=== PATIENT | female | born 1960 | race Caucasian/White ===

== ENCOUNTER 2021-01-18 18:12 | Emergency (ER) | payer OTHER ==
[~2021-01-18] VITALS: Ht 162.6 cm; Wt 91.0 kg
--- NOTE | 2021-01-18 18:17 | PHYS DOC ---
Past History Past Medical History: Anemia, GERD, High Cholesterol, Other General Adult HPI: HPI: "... 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 Pt. normally follows with Dr. Henson and GI Dr. Mccloud. Patient recently completed an EGD on Wednesday this past week January 14. No specific findings as reported out yet with biopsies. Patient does have a history of GERD. Has had problems with intermittent episodes of nausea and vomiting . Patient's had stomach discomfort gas after eating greasy foods such as Turkmen. There is a family history of gallbladder disease with mother. Patient localizes her pain to epigastric and right upper quadrant. Patient's recent Covid test is negative. Did have first course of Moderna Covid vaccination and is due for second course on 02/06. No recent travel. No sick ill contacts. No history of bad food intake. No history mental suppression. Patient is normally healthy. Patient has history of ovarian cyst. Clips of right femoral vein. 1 term 1. Patient has hx of elevated cholesterol. Review of Systems: Review of Systems: Constitutional: Denies fever or chills Eyes: Denies change in visual acuity HENT: Denies nasal congestion or sore throat Respiratory: Denies cough or shortness of breath Cardiovascular: Denies chest pain or edema GI: Complains of right upper quadrant and epigastric abdominal pain, nausea, vomiting,. Denies any tarry stools bloody stools or diarrhea : Denies dysuria Musculoskeletal: Denies back pain or joint pain Integument: Denies rash Neurologic: Denies headache, focal weakness or sensory changes Endocrine: Denies polyuria or polydipsia Lymphatic: Denies swollen glands Psychiatric: Denies depression or anxiety Family History: Family History: Mother had gallbladder surgery Current Medications: Current Meds: See nursing for home meds Allergies: Allergies: No known drug allergies Physical Exam: PE: Constitutional: Moderate acute distress, non-toxic appearance. [] HENT: Normocephalic, atraumatic, bilateral external ears normal, oropharynx moist, no oral exudates, nose normal. [] Eyes: PERRLA, EOMI, conjunctiva normal, no discharge. [] Neck: Normal range of motion, no tenderness, supple, no stridor. [] Cardiovascular:Heart rate regular rhythm, no murmur [] Lungs & Thorax: Bilateral breath sounds equal at apex auscultation [] Abdomen: Bowel sounds normal, soft, right upper quadrant tenderness, no masses, no pulsatile masses. [] Rebound to right upper quadrant and epigastric Skin: Warm, dry, no erythema, no rash. [] Back: No tenderness, no CVA tenderness. [] Extremities: No tenderness, no cyanosis, no clubbing, ROM intact, no edema. [] No psoas sign. Neurologic: Alert and oriented X 3, normal motor function, normal sensory function, no focal deficits noted. [] Psychologic: Affect anxious, judgement normal, mood normal. [] EKG: EKG: My interpretation EKG shows sinus rhythm ventricular rate at 81 with occasional PVC. But no findings acute STEMI with contralateral changes. [] Time of reading 1841 Radiology/Procedures: Radiology/Procedures: [address] [address] IMAGING REPORT Signed PATIENT: STANFORD JUDGE ACCOUNT: [id number] : 1960 LOCATION: ER AGE: 60 SEX: F EXAM STATUS: REG ER ORD. PHYSICIAN: SARAN DEWITT MD REASON: pain, OMNI 300, 75ml & OMNI 240, 30ml PROCEDURE: CT ABD PELV W/ORAL&IV CONTRAST PQRS Compliance Statement: One or more of the following individualized dose reduction techniques were utilized for this examination: 1. Automated exposure control 2. Adjustment of the mA and/or kV according to patient size 3. Use of iterative reconstruction technique CT abdomen/pelvis with contrast 01/18/2021 8:02 PM INDICATION: Upper abdominal pain since August. COMPARISON: None available TECHNIQUE: Multiple axial CT images of the abdomen and pelvis were obtained after the intravenous administration of 75 mL Omnipaque 300. Coronal and sagittal reformats are provided. FINDINGS: Visualized portions of the lung bases are clear. Heart size is within normal limits. No suspicious hepatic masses are identified. Liver is homogeneous in enhancement. Spleen, bilateral adrenal glands, and pancreas are normal in appearance. Gallbladder is present without adjacent inflammatory changes. The abdominal aorta is normal in course and caliber. There are no pathologically enlarged lymph nodes in the abdomen and pelvis. There is no abdominal free fluid. There is no free intraperitoneal air. The kidneys enhance symmetrically. There is no suspicious renal mass. There is no hydronephrosis. There are no suspected calculi within the kidneys, ureters or urinary bladder. There are a few fluid-filled small bowel loops in the right lower quadrant abdomen measuring up to 3.3 cm compatible with mid ileal bowel loops. Minimal adjacent free fluid is identified. Consideration may be given for ileus. Appendix is normal. Stomach is normal. Urinary bladder is within normal limits given degree of distention. Uterus is normal in appearance. No suspicious osseous abnormality is identified. IMPRESSION: There are a few fluid-filled small bowel loops in the right lower quadrant which are mildly dilated measuring up to 3.3 cm. There is adjacent free fluid. Consideration may be given for ileus. This bowel loop represents mid ileal bowel loop. Adhesions could result in partial small bowel obstruction. Electronically signed by: Diego Heath MD (01/18/2021 8:48 PM) [facility] DICTATED AND SIGNED BY: DIEGO HEATH MD DATE: 01/18/212038 CC: SARAN DEWITT MD; GUADALUPE HENSON MD ~MTH0 0 [][place] [address] IMAGING REPORT Signed PATIENT: STANFORD JUDGE ACCOUNT: [id number] : 1960 LOCATION: ER AGE: 60 SEX: F EXAM STATUS: REG ER ORD. PHYSICIAN: SARAN DEWITT MD REASON: pain, N/V, PAIN SINCE AUGUST 2020, GI SCOPE 01/14/2021 PROCEDURE: ACUTE ABDOMEN SERIES Acute abdominal series with PA chest: Reason for examination: Nausea and vomiting with abdominal pain since August 2020. The heart size is normal. Mediastinum is unremarkable. Lung spaulding show a calcified granuloma at the right costophrenic angle. No acute infiltrates or pleural effusions are evident. No acute bony abnormality is seen. There is no gross organomegaly. Psoas muscles are symmetric. The bowel gas pattern is nonspecific with no abnormal dilatation or apparent obstruction. Calcifications consistent with phleboliths are seen in the right pelvis. There is a mild lumbar scoliosis. No acute bony abnormalities are seen. IMPRESSION: No acute cardiopulmonary disease. Nonspecific and nonobstructive bowel gas pattern. Electronically signed by: Macie Moss MD (01/18/2021 9:09 PM) [facility] DICTATED AND SIGNED BY: MACIE MOSS MD DATE: 01/18/212106 CC: SARAN DEWITT MD; GUADALUPE HENSON MD ~MTH0 0 Heart Score: C/O Chest Pain: N/A HEART Score for Chest Pain: HEART Score for Chest Pain Response (Comments) Value History Slighlty/Non-Suspicious 0 ECG Normal 0 Age >45 - < 65 1 Risk Factors 1 or 2 Risk Factors 1 Troponin < Normal Limit 0 Total 2 Risk Factors: Risk Factors: DM, Current or recent (<one month) smoker, HTN, HLP, family history of CAD, obesity. Risk Scores: Score 0 - 3: 2.5% MACE over next 6 weeks - Discharge Home Score 4 - 6: 20.3% MACE over next 6 weeks - Admit for Clinical Observation Score 7 - 10: 72.7% MACE over next 6 weeks - Early Invasive Strategies Course & Med Decision Making: Course & Med Decision Making Pertinent Labs and Imaging studies reviewed. (See chart for details) Recommend patient stay on a clear fluid diet for the next 24 to 48 hours. No solids or milk products. Follow-up primary care. Consider getting an outpatient ultrasound or PIPIDA or gallbladder function studies to evaluate biliary colic. Symptoms are somewhat consistent with biliary colic particularly since family members have had gallbladder disease. If continued pain have reexam. Return if any concerns. Consider increasing oral iron supplementation. Follow-up pending EGD biopsy results. Impression: 1. Abdomen pain right upper quadrant 2. Partial Small bowel obstruction? 3. Anemia Hgb= 9.2 with microcytic hyperchromic indices 70/21 4.. Mild Leukocytosis 13.2. 5. Diabetes 6. GERD and Biliary colic-strongly suspect. [] Dontrell Disclaimer: Dontrell Disclaimer: This electronic medical record was generated, in whole or in part, using a voice recognition dictation system. Departure Departure: Referrals: GUADALUPE HENSON MD (PCP) Dontrell Disclaimer This chart was dictated in whole or in part using Voice Recognition software in a busy, high-work load, and often noisy Emergency Department environment. It may contain unintended and wholly unrecognized errors or omissions. SARAN DEWITT MD Jan 18, 2021 18:17
[2021-01-18 18:28] VITALS: BP 151/77
[2021-01-18] MEDS ORDERED: CONTRAST GIVEN. MC PRN (18:45)
[2021-01-18] MEDS ORDERED: ONDANSETRON PF 4 MG/2 ML VIAL. IVP ONE (19:00)
[2021-01-18] MEDS ORDERED: KETOROLAC 30 MG/ML VIAL. IVP ONE (19:00)
[2021-01-18] MEDS ORDERED: IOHEXOL 240 MG/ML 50ML VIAL. PO ONE (19:00)
[2021-01-18] MEDS ORDERED: IV RINGERS SOLUTION,LACTATED 1,000 ML IV SCH (19:00)
[2021-01-18] MEDS ORDERED: FAMOTIDINE 20 MG/2 ML VIAL IVP ONE (19:00)
[2021-01-18] MEDS ORDERED: IOHEXOL 300 MG/ML 75 ML VIAL. IV ONE (19:00)
[2021-01-18 19:05] LABS: BASO # 0.1 x10^3/uL (0.0-0.2); BASO % 0 % (0-3); EOS # 0.2 x10^3/uL (0.0-0.7); EOS % 2 % (0-3); HEMATOCRIT 31.1 % (36.0-47.0); HEMOGLOBIN 9.2 g/dL (12.0-15.5); LYMPH # 1.3 x10^3/uL (1.0-4.8); LYMPH % 10 % (24-48); MEAN CORPUSCULAR HEMOGLOBIN 21 pg (25-35); MEAN CORPUSCULAR HGB CONC 30 g/dL (31-37); MEAN CORPUSCULAR VOLUME 70 fL (79-100); MONO # 0.7 x10^3/uL (0.0-1.1); MONO % 5 % (0-9); NEUT # 10.9 x10^3uL (1.8-7.7); NEUT % 83 % (31-73); PLATELET COUNT 397 x10^3/uL (140-400); RED BLOOD COUNT 4.44 x10^6/uL (3.50-5.40); RED CELL DISTRIBUTION WIDTH 19.8 % (11.5-14.5); WHITE BLOOD COUNT 13.2 x10^3/uL (4.0-11.0)
[2021-01-18 19:10] LABS: CREATININE 0.8 mg/dL (0.6-1.0); GFR 73.4; POTASSIUM 3.8 mmol/L (3.5-5.1)
[2021-01-18 19:18] LABS: ALBUMIN 3.8 g/dL (3.4-5.0); DIRECT BILIRUBIN 0.1 mg/dL (0.0-0.2); TOTAL BILIRUBIN 0.3 mg/dL (0.2-1.0); TOTAL PROTEIN 7.1 g/dL (6.4-8.2)
[2021-01-18 19:33] LABS: ANISOCYTOSIS MOD; HYPOCHROMIA SLIGHT; OVALOCYTES OCC; PLT ESTIMATE ADEQUATE (ADEQUATE); POLYCHROMASIA SLIGHT; SCHISTOCYTES OCC; TEAR DROP CELLS OCC
--- NOTE | 2021-01-18 20:51 | RAD ---
PQRS Compliance Statement: One or more of the following individualized dose reduction techniques were utilized for this examinat ion: 1. Automated exposure control 2. Adjustment of the mA and/or kV according to patient size 3. Use of iterative reconstruction technique CT abdomen/pelvis with contrast 01/18/2021 8:02 PM INDICATION: Upper abdominal pain since August. COMPARISON: None available TECHNIQUE: Multiple axial CT images of the abdomen and pelvis were obtained after the intravenous adm inistration of 75 mL Omnipaque 300. Coronal and sagittal reformats are provided. FINDINGS: Visualized portions of the lung bases are clear. Heart size is within normal limits. No suspicious hepatic masses are identified. Liver is homogeneous in enhancement. Spleen, bilateral a drenal glands, and pancreas are normal in appearance. Gallbladder is present without adjacent inflamm atory changes. The abdominal aorta is normal in course and caliber. There are no pathologically enlarged lymph nodes in the abdomen and pelvis. There is no abdominal free fluid. There is no free intraperitoneal air. The kidneys enhance symmetrically. There is no suspicious renal mass. There is no hydronephrosis. The re are no suspected calculi within the kidneys, ureters or urinary bladder. There are a few fluid-filled small bowel loops in the right lower quadrant abdomen measuring up to 3. 3 cm compatible with mid ileal bowel loops. Minimal adjacent free fluid is identified. Consideration may be given for ileus. Appendix is normal. Stomach is normal. Urinary bladder is within normal limits given degree of distention. Uterus is normal in appearance. No suspicious osseous abnormality is identified. IMPRESSION: There are a few fluid-filled small bowel loops in the right lower quadrant which are mildly dilated m easuring up to 3.3 cm. There is adjacent free fluid. Consideration may be given for ileus. This bowel loop represents mid ileal bowel loop. Adhesions could result in partial small bowel obstruction. Electronically signed by: Radha Cornell MD (01/18/2021 8:48 PM) [facility]
--- NOTE | 2021-01-18 21:11 | RAD ---
Acute abdominal series with PA chest: Reason for examination: Nausea and vomiting with abdominal pain since August 2020. The heart size is normal. Mediastinum is unremarkable. Lung spaulding show a calcified granuloma at the right costophrenic angle. No acute infiltrates or pleural effusions are evident. No acute bony abnorm ality is seen. There is no gross organomegaly. Psoas muscles are symmetric. The bowel gas pattern is nonspecific wit h no abnormal dilatation or apparent obstruction. Calcifications consistent with phleboliths are seen in the right pelvis. There is a mild lumbar scoliosis. No acute bony abnormalities are seen. IMPRESSION: No acute cardiopulmonary disease. Nonspecific and nonobstructive bowel gas pattern. Electronically signed by: Amy Jerry MD (01/18/2021 9:09 PM) JESSICA
[2021-01-18 21:12] LABS: BACTERIA,URINE 0 /HPF (0-FEW); BILIRUBIN,URINE NEG (NEG); CLARITY,URINE CLEAR; COLOR,URINE YELLOW; GLUCOSE,URINE NEG (NEG); NITRITE,URINE NEG (NEG); RBC,URINE 0 /HPF (0-2); SQUAMOUS EPITHELIAL CELL,UR OCC /LPF; UROBILINOGEN,URINE 0.2 mg/dL (0.2 mg/dL); WBC,URINE 0 /HPF (0-4)
[2021-01-18 21:22] LABS: BARBITURATES NEG (NEG); BENZODIAZEPINES NEG (NEG); CANNABINOIDS NEG (NEG); COCAINE NEG (NEG); METHADONE NEG (NEG); OPIATES NEG (NEG); PHENCYCLIDINE NEG (NEG)
[2021-01-18 21:24] LABS: AMPHETAMINE/METHAMPHETAMINE NEG (NEG)
--- NOTE | 2021-01-19 06:18 | EKG ---
[address] [address] Test Date: 2021-01-18 Test Time: 18:40:15 Pat Name: STANFORD JUDGE Department: Room: Gender: F Director Digital Catalogue: : 1960 Requested By: SARAN DEWITT Order Number: [id number] Reading MD: Measurements Intervals Hodge Rate: 81 P: SD: QRS: 44 QRSD: 70 T: 29 QT: 376 QTc: 437 Interpretive Statements SINUS RHYTHM VENTRICULAR PREMATURE COMPLEX(ES) ABNORMAL ECG RI6.02 No previous ECG available for comparison
== END 2021-01-18 23:59 | disposition home or self-care (01) ==
LOC: ER 18:12
DX: K21.9 Gastro-esophageal reflux disease without esophagitis (principal); D64.9 Anemia, unspecified; D72.829 Elevated white blood cell count, unspecified; E11.9 Type 2 diabetes mellitus without complications; E78.00 Pure hypercholesterolemia, unspecified
CPT/HCPCS: 36415; 74022; 74177; 80048; 80076; 80307; 81001; 82150; 82550; 83690; 84484; 85025; 85610; 85730; 93005; 96361; 96374; 96375; 99285; J1885; J2405; J3490; J7120; Q9966; Q9967